=== PATIENT | female | born 1995 | race Caucasian/White ===

== ENCOUNTER 2018-02-28 06:55 | Inpatient (IN) | payer OTHER ==
[2018-02-28 07:38] VITALS: BMI 34.3
[2018-02-28 08:06] LABS: Amnisure Test RUPTURE DETECTED (No Rupture)
[2018-02-28 08:07] LABS: Amnisure Internal Control QC ACCEPTABLE (ACCEPTABLE)
[2018-02-28] MEDS ORDERED: NS / Oxytocin 40 units/1000ml 1,000 ML IV PRN (08:30)
[2018-02-28] MEDS ORDERED: Ondansetron PF 4 MG/2 ML Vial IVP PRN ×4 (08:30→22:39)
[2018-02-28] MEDS ORDERED: NS w/ Oxytocin 10 units 500 ML IV SCH ×2 (08:30)
[2018-02-28] MEDS ORDERED: Butorphanol Tartrate 1 MG/ML VIAL SLOW IVP PRN (08:30)
[2018-02-28] MEDS ORDERED: Ibuprofen 800 MG TAB PO PRN (08:30)
[2018-02-28] MEDS ORDERED: Lidocaine 1% (PF) 30 ML VIAL SC PRN (08:30)
[2018-02-28] MEDS ORDERED: HYDROcodone/Acetaminophen 5/325 mg Tablet PO PRN (08:30)
[2018-02-28] MEDS ORDERED: Carboprost 250 MCG/ML AMP IM PRN (08:30)
[2018-02-28] MEDS ORDERED: Misoprostol 200 MCG TAB PR PRN (08:30)
[2018-02-28] MEDS ORDERED: Diphenoxylate HCl/Atropine Tablet PO PRN (08:30)
[2018-02-28] MEDS ORDERED: Methylergonovine 0.2 MG/ML VIAL IM PRN (08:30)
[2018-02-28] MEDS ORDERED: Penicillin G Potassium 5 MILL.UNITS in Sodium Chloride 0.9% 100 ML IVPB SCH (08:30)
[2018-02-28] MEDS: Lactated Ringer's 1,000 ML IV SCH ×2 (08:40→13:30)
[2018-02-28] MEDS ORDERED: Penicillin G Potassium 5 MILL.UNITS VIAL ONE (08:55)
[2018-02-28] MEDS ORDERED: Oxytocin 10 UNITS/ML VIAL ONE ×2 (09:11→20:42)
[2018-02-28] MEDS ORDERED: NS w/ Oxytocin 10 units 500 ML ONE (09:12)
[2018-02-28 09:20] LABS: Mean Corpuscular HGB CONC 33.1 g/dL (32.0-36.0); Mean Corpuscular Hemoglobin 30.5 pg (27.0-31.0); Mean Corpuscular Volume 92.2 fL (78.0-98.0); Mean Platelet Volume 11.2 fL (7.4-10.4); Platelet Count 183 thou/uL (130-400); RBC Distribution Width 11.9 % (11.5-14.5); Red Blood Cell (RBC) Count 4.25 mill/uL (4.20-5.40); White Blood Cell (WBC) Count 13.1 thou/uL (4.8-10.8)
[2018-02-28 10:00] LABS: Syphilis Antibody Nonreactive (Nonreactive); Syphilis Antibody Index 0.05 S/CO (<1.00 Non-Reactive)
[2018-02-28 10:01] LABS: HBSAg Index 0.28 S/CO (0-0.99); Hep B Surf Ag Non-Reactive S/CO (NonReactive)
[2018-02-28] MEDS ORDERED: Fentanyl 4 mcg/Bup 0.1% Cadd 100 ML ONE (13:07)
[2018-02-28] MEDS ORDERED: Lactated Ringer's 500 ML IV PRN (13:44)
[2018-02-28] MEDS ORDERED: Acetaminophen 325 MG TAB PO PRN (13:44)
[2018-02-28] MEDS ORDERED: Eucerin (Mineral Oil/Petrolatum,White) 30 gm Jar TOP PRN ×2 (13:44→20:57)
[2018-02-28] MEDS ORDERED: Promethazine HCl 25 MG/ML VIAL IM PRN ×2 (13:44→20:57)
[2018-02-28] MEDS ORDERED: ePHEDrine/0.9% NaCl/PF SYRINGE 50 mg/10 ml SLOW IVP PRN (13:44)
[2018-02-28] MEDS ORDERED: diphenhydrAMINE 50 MG/ML VIAL IVP PRN ×2 (13:44→20:57)
[2018-02-28] MEDS ORDERED: Naloxone HCl 0.4 mg/ml Vial IVP PRN ×4 (13:44→20:57)
[2018-02-28] MEDS ORDERED: Communication Order-Pharmacy FS SCH ×2 (13:45→21:00)
[2018-02-28] MEDS ORDERED: Fentanyl 4 mcg/Bupivacaine 0.1% Cassette 100 ML EPIDURAL SCH (13:45)
[2018-02-28] MEDS: Penicillin G 2.5 MILL.units 2.5 MILL.UNITS in Premix Bag 1 BAG IVPB SCH ×2 (14:00→17:57)
[2018-02-28] MEDS ORDERED: Ketorolac Tromethamine 30 MG/ML VIAL ONE ×2 (15:14→20:42)
[2018-02-28] MEDS ORDERED: Ondansetron PF 4 MG/2 ML Vial ONE ×2 (15:14→20:42)
[2018-02-28 15:43] LABS: Medtox Reader # READER 1
[2018-02-28 15:44] LABS: Amphetamine Not Detected (NotDetected); Barbiturates Screen Not Detected (NotDetected); Benzodiazepine Screen Not Detected (NotDetected); Cocaine Metabolite Screen Not Detected (NotDetected); Medtox Control Line Valid? VALID (VALID); Methadone Not Detected (NotDetected); Methamphetamine Not Detected (NotDetected); Opiate Screen Not Detected (NotDetected); Oxycodone Screen Not Detected (NotDetected); Phencyclidine (PCP) Not Detected (NotDetected); THC/Cannabinoid Screen Detected (NotDetected); Tricyclic Screen Not Detected (NotDetected)
[2018-02-28] MEDS ORDERED: Bicitra 30 ML UDCUP ONE (20:07)
[2018-02-28] MEDS ORDERED: CEFAZOLIN 2 GM/50 ML BAG ONE (20:07)
[2018-02-28] MEDS ORDERED: Lidocaine 2% 10 ML INJ ONE ×3 (20:29→20:49)
[2018-02-28] MEDS ORDERED: Fentanyl 100 MCG/2 ML VIAL ONE (20:41)
[2018-02-28] MEDS ORDERED: Ondansetron HCl/PF 4 MG/2 ML Vial IVP PRN (20:57)
[2018-02-28] MEDS ORDERED: L&D-Morphine 4 MG/ML VIAL SLOW IVP PRN (20:57)
[2018-02-28] MEDS ORDERED: Promethazine HCl 25 MG SUPP PR PRN (20:57)
[2018-02-28] MEDS ORDERED: Meperidine HCl/PF 25 MG/ML VIAL SLOW IVP PRN (20:57)
[2018-02-28] MEDS ORDERED: HYDROmorphone 2 MG/ML VIAL SLOW IVP PRN (20:57)
[2018-02-28] MEDS ORDERED: Ketorolac Tromethamine 30 MG/ML VIAL IVP PRN (20:57)
[2018-02-28] MEDS ORDERED: Naloxone HCl 0.4 mg/ml Vial IV PRN (20:57)
[2018-02-28] MEDS ORDERED: Ketorolac Tromethamine 30 MG/ML VIAL IVP SCH (21:00)
[2018-02-28] MEDS ORDERED: Morphine PF 1 MG/ML SYR ONE (21:00)
[2018-02-28] MEDS ORDERED: Methylergonovine 0.2 MG/ML VIAL ONE (21:03)
[2018-02-28] MEDS ORDERED: diphenhydrAMINE 25 MG CAP PO PRN (22:39)
[2018-02-28] MEDS ORDERED: Bisacodyl 10 MG SUPP PR PRN (22:39)
[2018-02-28] MEDS ORDERED: Lanolin Ointment 7 GM TUBE TOP PRN (22:39)
[2018-02-28] MEDS ORDERED: Lactated Ringer's 1,000 ML IV SCH (23:00)
[2018-02-28] MEDS ORDERED: NS / Oxytocin 40 units/1000ml 1,000 ML IV SCH (23:00)
[2018-03-01] MEDS: Penicillin G 2.5 MILL.units 2.5 MILL.UNITS in Premix Bag 1 BAG IVPB SCH (02:28)
[2018-03-01] MEDS: Ketorolac Tromethamine 30 MG/ML VIAL IVP SCH ×3 (04:10→17:44)
[2018-03-01 06:27] LABS: Mean Corpuscular HGB CONC 34.4 g/dL (32.0-36.0); Mean Corpuscular Hemoglobin 32.6 pg (27.0-31.0); Mean Corpuscular Volume 94.9 fL (78.0-98.0); Mean Platelet Volume 10.5 fL (7.4-10.4); Platelet Count 125 thou/uL (130-400); RBC Distribution Width 11.9 % (11.5-14.5); Red Blood Cell (RBC) Count 3.36 mill/uL (4.20-5.40); White Blood Cell (WBC) Count 12.5 thou/uL (4.8-10.8)
[2018-03-01] MEDS: Ferrous Sulfate 325 MG TAB PO SCH ×2 (07:50→17:45)
[2018-03-01] MEDS ORDERED: Meperidine HCl/PF 25 MG/ML VIAL IM PRN (09:00)
[2018-03-01] MEDS: Docusate Calcium (SURFAK) 240 MG CAP PO SCH ×2 (09:35→21:28)
[2018-03-01] MEDS: Prenatal Vitamin 1 TAB PO SCH (09:35)
[2018-03-01] MEDS: Simethicone Chewable 80 MG TAB PO PRN (11:38)
[2018-03-01] MEDS: HYDROcodone/Acetaminophen 5/325 mg Tablet PO PRN ×3 (11:39→23:11)
[2018-03-01] MEDS: Ibuprofen 800 MG TAB PO SCH (21:28)
[2018-03-02] MEDS: Ibuprofen 800 MG TAB PO SCH ×3 (05:13→21:18)
[2018-03-02] MEDS: Simethicone Chewable 80 MG TAB PO PRN (05:13)
[2018-03-02] MEDS: HYDROcodone/Acetaminophen 5/325 mg Tablet PO PRN ×3 (05:14→20:22)
[2018-03-02] MEDS: Prenatal Vitamin 1 TAB PO SCH (09:49)
[2018-03-02] MEDS: Ferrous Sulfate 325 MG TAB PO SCH ×2 (09:50→17:09)
[2018-03-02] MEDS: Docusate Calcium (SURFAK) 240 MG CAP PO SCH ×2 (09:50→20:22)
[2018-03-03] MEDS: Ibuprofen 800 MG TAB PO SCH ×2 (06:12→13:32)
[2018-03-03] MEDS: Ferrous Sulfate 325 MG TAB PO SCH (08:04)
[2018-03-03] MEDS: Prenatal Vitamin 1 TAB PO SCH (08:05)
[2018-03-03] MEDS: HYDROcodone/Acetaminophen 5/325 mg Tablet PO PRN ×2 (08:05→13:32)
[2018-03-03] MEDS: Docusate Calcium (SURFAK) 240 MG CAP PO SCH (08:05)
[2018-03-03 16:23] VITALS: BP 119/60; TEMP 98.3
--- NOTE | 2018-03-05 13:31 | OP ---
DATE OF PROCEDURE: 02/28/2018 PREOPERATIVE DIAGNOSES: 1. Term intrauterine . 2. Arrest of dilation. POSTOPERATIVE DIAGNOSES: 1. Term intrauterine . 2. Arrest of dilation. PROCEDURE PERFORMED: Primary low cervical transverse section. ANESTHESIA: Epidural. DESCRIPTION OF PROCEDURE: After informed consent was obtained from the patient, she was taken to the operating room, where she was prepped and draped in the usual sterile fashion. Once anesthesia was adequate, a Pfannenstiel incision was created with a #10 scalpel blade and carried down to the fascia. The fascia was nicked in the midline. The fascial incision was extended transversely with Gee scissors. The superior fascial segments were grasped with Nora and elevated, and the underlying rectus muscles were dissected away, first bluntly and then sharply. This was repeated with the inferior fascial segments. The rectus muscles were divided in the midline with blunt dissection. The peritoneum was entered bluntly. An Bernard O retractor was placed. The uterus was entered in a low transverse fashion with a clean #10 scalpel blade. Clear amniotic fluid was encountered. vertex was delivered on to the operative field. The remainder of the was delivered uneventfully and atraumatically. The oropharynx and nares were bulb suctioned. The cord was clamped x2, and a vigorous male was handed to the staff in attendance. Cord blood was obtained. The placenta was manually extracted. The uterus was exteriorized. The uterus was then repaired with a running locking suture of 0 Vicryl in a single full-thickness layer, followed by a series of interrupted [id number] sutures of 0 Vicryl along the incision line for hemostasis, which was observed. The abdomen was copiously irrigated with saline. The Bernard retractor was removed. Seprafilm was applied to the repair of the uterine incision and the anterior uterine fundus. The uterus was returned to the abdomen. Hemostasis was again observed. The peritoneum was repaired with a running suture of 3-0 Vicryl. The facia was repaired with a running suture of 0 PDS. Three interrupted sutures of 3-0 Vicryl were placed in the subdermal layer to reapproximate the skin, which was closed with skin annette. Sponge and instrument counts were correct x4. She tolerated the procedure well and suffered no acute complications. She was taken to recovery room in stable condition, and the infant to the nursery in stable condition. FINDINGS: Viable male infant, Apgars 8 and 9 at one and five minutes respectively. 8 pounds and 0 ounces. COMPLICATIONS: None. ESTIMATED BLOOD LOSS: 800 mL. Job ID: [id number]
[2019-02-28] MEDS ORDERED: Bupivacaine HCl 0.25%/Epi 0.0005/PF 10 ML VIAL FS ONE (11:11)
== END 2018-03-03 16:17 | disposition home or self-care (01) | DRG 787 ==
LOC: L&D/OP 06:55 → L&D 09:38 → 3SW 03-01 01:08
PROVIDERS: ADMIT Family Medicine; ATTEND Family Medicine
PROC: 10D00Z1 Extraction of Products of Conception, Low, Open Approach (ICD-10-PCS; principal; 2018-02-28)
PROC: 3E0P05Z Introduction of Adhesion Barrier into Female Reproductive, Open Approach (ICD-10-PCS; 2018-02-28)
DX: O62.1 Secondary uterine inertia (principal); O98.22 Gonorrhea complicating childbirth; O99.824 Streptococcus B carrier state complicating childbirth; Z3A.39 39 weeks gestation of pregnancy; Z37.0 Single live birth
CPT/HCPCS: 36415; 51702; 80306; 84112; 85027; 86780; 86850; 86900; 86901; 87340; 88307; 99285; J1885; J2210; J2274; J2405; J2540; J2590; J3010; J7050